=== PATIENT | male | born 1960 | race Caucasian/White ===

== ENCOUNTER 2022-10-08 15:46 | Emergency (ER) | payer BC, SELFPAY ==
[2022-10-08] VITALS (8 sets, daily range): BP systolic 126–140; BP diastolic 81–92; PULSE 94–101; RESP 16–26; TEMP 37.4; O2SAT 95–98
--- NOTE | 2022-10-08 15:45 | RT.EKG_ITS ---
APPROVED REPORT Exam: Resting ECG Reason for Exam: syncope Patient Location: E HR:97 bpm ECG Measurements Heart Rate 97 AXIS IL 171 P 61 QRSd 91 QRS 48 QT 323 T 44 QTc 412 Conclusion Sinus rhythm...normal P axis, V-rate 60- 99 sinus rhythm, normal axis, normal intervals, non sichemic
--- NOTE | 2022-10-08 16:06 | DI.RAD_ITS ---
Exam(s) XR PORTABLE CHEST AP EXAM: XR PORTABLE CHEST AP CLINICAL HISTORY: cough, syncope. TECHNIQUE: 2D digital imaging was performed. COMPARISON: No exams were available for comparison FINDINGS: LUNGS: Clear. No pleural abnormality seen. HEART: Normal. MEDIASTINUM: Normal. OTHER FINDINGS: None. IMPRESSION: No acute pulmonary findings. DATA REPOSITORY: RADIATION DOSE DELIVERED: Total DLP
--- NOTE | 2022-10-08 16:09 | ED.GENADUL_ITS ---
Discharge Plan Disposition Patient Disposition: Home Condition: Improving Discharge Details Clinical Impression: Cough, Syncope Primary Care Provider: Tamiko,Local ED Provider: Dany Peoples Home Meds and New Rx's Prescriptions: New benzonatate 100 mg capsule 100 mg PO BID PRN (Reason: cough) Qty: 14 0RF No Action Vitamin C 100 mg Tablet 100 mg PO DAILY cholecalciferol (vitamin D3) [Vitamin D3] 25 mcg (1,000 unit) Tablet 25 mcg PO DAILY amitriptyline 10 mg Tablet 30 mg PO DAILY simvastatin 20 mg Tablet 20 mg PO DAILY losartan 100 mg Tablet 100 mg PO DAILY esomeprazole magnesium [Nexium] 20 mg Capsule,Delayed Release(Dr/Ec) 20 mg PO BID Discharge Instructions Instructions: Syncope (ED), Acute Cough (ED) Additional Instructions: Please follow-up with your primary care physician. Please return to the emergency department for any worsening symptoms. Medical Decision Making 62-year-old male presents after syncopal episode in the setting of coughing fit, afebrile nontoxic no respiratory distress no peripheral edema no chest pain. EKG normal sinus rhythm nonischemic, hemodynamically stable. Likely vasovagal syncope in the setting of coughing lower suspicion for ACS PE stroke intracranial trauma or serious bacterial infection. Will obtain screening labs troponin chest x-ray EKG fluids anti-inflammatory close reassessment of symptoms. Patient does endorse a brief left calf cramp yesterday, denies history of thromboembolic disease, will obtain bedside [id number] left lower extremity ultrasound to assess for DVT. 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 Has maintained his oxygenation in normal range, hemodynamically stable labs unremarkable, EKG nonischemic no arrhythmia, bedside ultrasound negative for left lower extremity DVT. High clinical suspicion for vasovagal event in the setting of coughing, now self resolved. Home care instructions and strict return precautions given. Sign Out No HPI General Date/Time Provider Initiated Documentation: 10/08/22 16:06 . HPI Narrative: 62-year-old male presents after syncopal episode after a coughing fit, nonproductive cough today, syncopized on the couch no trauma, denies chest pain or shortness of breath. Denies history of thromboembolic disease or cardiac disease. Related Data Home Medications Medication Instructions Recorded Confirmed amitriptyline 10 mg tablet 30 mg PO DAILY 10/08/22 10/08/22 ascorbic acid (vitamin C) 100 mg 100 mg PO DAILY 10/08/22 10/08/22 tablet (Vitamin C) benzonatate 100 mg capsule 100 mg PO BID PRN cough #14 caps 10/08/22 cholecalciferol (vitamin D3) 25 25 mcg PO DAILY 10/08/22 10/08/22 mcg (1,000 unit) tablet (Vitamin D3) esomeprazole magnesium 20 mg 20 mg PO BID 10/08/22 10/08/22 capsule,delayed release (Nexium) losartan 100 mg tablet 100 mg PO DAILY 10/08/22 10/08/22 simvastatin 20 mg tablet 20 mg PO DAILY 10/08/22 10/08/22 Previous Rx's Medication Instructions Recorded benzonatate 100 mg capsule 100 mg PO BID PRN cough #14 caps 10/08/22 Allergies Allergy/AdvReac Type Severity Reaction Status Date / Time No Known Allergies Allergy Unverified 10/08/22 15:59 General Stated Complaint: Dizzy/Sync MARICEL: 3 Review of Systems Narrative: Review of Systems Constitutional: negative Eyes: negative ENT: negative Cardiovascular: Syncope Respiratory: Cough Gastrointestinal: negative : negative Musculoskeletal: negative Skin: negative Neurologic: negative Psych: negative PFSH All Active Problems (Updated 10/08/22 @ 17:50 by Dany Peoples MD) Cough (Acute) Syncope (Chronic) Social History Smoking/Tobacco Use Status: Never Smoking risk assessment performed?: Yes Alcohol Intake: current Alcohol Intake frequency: a few times a week Drug use: Never Substance use type: does not use Do you feel safe at home: Yes Do you feel safe in your relationship?: Yes Exam Narrative Exam Narrative: Physical Examination General: alert, awake, cooperative, resting comfortably, no acute distress HEENT: normocephalic, atraumatic; PERRL, EOM intact, conjunctiva normal; no nasal discharge; moist mucous membranes, oral and pharyngeal mucosa normal, tolerating secretions Neck: supple, trachea midline; full ROM Chest: normal to inspection Respiratory: normal respiratory effort, speaking in full sentences, clear to auscultation, no wheezing, rales or rhonchi Cardiac: regular rate, regular rhythm, S1S2 intact, no murmurs rubs or gallops GI: abdomen soft, non-tender, non-distended; no palpable mass or hepatosplenomegaly Skin: no lesions, rashes or trauma appreciated Neuro: AAOx3, normal speech, moving all extremities; cranial nerves II through XII intact 5 and 5 strength upper and lower extremities no truncal ataxia Extremities: No peripheral edema Psych: Appropriate mood and affect Course Vital Signs Vital signs: Vital Signs Temperature 37.4 C 10/08/22 15:48 Pulse 97 H 10/08/22 15:48 Respiratory Rate 18 10/08/22 15:48 Blood Pressure 140/90 10/08/22 15:48 Pulse Oximetry 98 10/08/22 15:48 Temperature 37.4 C 10/08/22 15:48 Temperature Source Oral 10/08/22 15:48 Pulse 97 H 10/08/22 15:48 Respiratory Rate 16 10/08/22 16:01 Respiratory Effort Non-Labored 10/08/22 16:01 Respiratory Depth Normal 10/08/22 16:01 Respiratory Pattern Normal 10/08/22 16:01 Blood Pressure 140/90 10/08/22 15:48 Pulse Oximetry 98 10/08/22 15:48 Oxygen Delivery Method Room Air 10/08/22 15:48 Oxygen Flow Rate 0 10/08/22 15:48 Pain Level 0 10/08/22 15:48 PAWSS Have you Been Recently Intoxicated or Drunk Within the Last 30 days?: Yes Have you Ever Experienced Previous Episodes of Alcohol Withdrawal?: No Have you ever Experienced Withdrawal Seizures?: No Have you ever Experienced Delirium Tremens(DT)s?: No Have you ever undergone Alcohol Rehabilitation Treatment (i.e, inpt ot outpatient treatment programs)?: No Have you ever Experienced Blackouts?: No Have you ever Combined Alcohol with other Downers within the last 90 days?: No Have you ever Combined Alcohol with any other Substance of Abuse during the last 90 days?: No Positive Blood Alcohol level on Presentation? [PCS.BAL]: No Evidence of Increased Autonomic Activity (i.e. HR>120, tremor, sweating, agitation, nausea)?: No Result: 1
[2022-10-08 16:13] LABS: Abs Immature Grans 0.02 10^3/uL (0.0-0.06); Absolute Basophil Count 0.04 10^3/uL (0.0-0.2); Absolute Eosinophil Count 0.12 10^3/uL (0.0-0.7); Absolute Monocyte Count 0.54 10^3/uL (0.1-0.8); Absolute Neutrophil Count 5.29 10^3/uL (1.2-6.7); Basophils % 0.6; Eosinophils % 1.8; HCT 41.1 % (40.0-50.0); HGB 14.5 g/dL (13.5-17.5); Immature Grans % 0.3; Lymphocytes % 7.7; MCHC 35.3 % (32.0-36.0); MCV 97 fL (80-95); MPV 8.4 fL (8.0-11.0); Monocytes % 8.3; Neutrophils % 81.3; Platelet Count 183 10^3/uL (130-400); RBC 4.26 10^6/uL (4.36-5.78); RDW 12.2 % (11.8-14.1); RDW-SD 43.1 fL; WBC 6.51 10^3/uL (4.4-10.8)
--- NOTE | 2022-10-08 16:15 | DI.CT_ITS ---
Exam(s) CT HEAD WO EXAM: CT HEAD WO CLINICAL HISTORY: syncope v seizure. TECHNIQUE: Imaging Protocol: Axial computed tomography images with coronal and sagittal reformatted images were created and reviewed COMPARISON: No exams were available for comparison FINDINGS: The ventricular system is normal in appearance. No evidence of acute intracranial hemorrhage, mass effect, or midline shift. The orbital structures are unremarkable. The temporal bone structures appear intact. Calvarium: Normal. Visualized Paranasal sinuses/Mastoids: Clear. IMPRESSION: Normal cranial CT. RADIATION DOSE DELIVERED: 816.73mGy.cm Total DLP 816.73mGy.cm Total DLP DATA REPOSITORY: All CT scans at this facility are submitted to the National Radiology Data Registry (NRDR) Dose Index Registry (DIR) with the [employer] ([employer]). RADIATION OPTIMIZATION: All CT scans at this facility use at least one of these dose optimization te chniques: automated exposure control; mA and/or kV adjustment per patient size (includes targeted exa ms where dose is matched to clinical indication); or iterative reconstruction.
[2022-10-08] MEDS: Dexamethasone 10 MG/ML VIAL IVP (16:20)
[2022-10-08] MEDS: Acetaminophen 325 MG TAB 650 MG PO (16:21)
[2022-10-08] MEDS: Normal Saline 1,000 ML 1000 ML IV (16:21)
[2022-10-08 16:31] LABS: ALT 74 U/L (16-63); Albumin 3.8 g/dL (3.4-5.0); Alkaline Phosphatase 116 U/L (46-116); Anion Gap 9.1 mmol/L (3-11); BUN 15 mg/dL (7-18); Bilirubin, Total 0.5 mg/dL (0.2-1.0); CO2 25.9 mmol/L (21.0-32.0); CREATININE 1.2 mg/dL (0.70-1.30); Calcium 8.1 mg/dL (8.5-10.1); Chloride 105 mmol/L (98-107); Estimated GFR 69.23 (mL/min/1.73m2); Glucose 100 mg/dL (74-106); Potassium 4.2 mmol/L (3.5-5.1); Sodium 140 mmol/L (136-145); Total Protein 7.2 g/dL (6.4-8.2); Troponin I < 50 ng/L (<or=60)
[2022-10-08 16:46] LABS: AST 59 U/L (15-37)
--- NOTE | 2022-10-08 17:06 | DI.VRAD_ITS ---
PROCEDURE INFORMATION: Exam: CT Head Without Contrast Exam date and time: 10/08/2022 4:47 PM Age: 62 years old Clinical indication: Syncope and collapse; Patient HX: Syncope vs seizure TECHNIQUE: Imaging protocol: Computed tomography of the head without contrast. COMPARISON: No relevant prior studies available. FINDINGS: Brain: There is no evidence for acute intra-axial or extra-axial hemorrhage. There is no intracranial mass or mass effect. The basilar cisterns are patent. There is mild diffuse cerebral volume loss. There is normal joy-white differentiation throughout the brain. There is no CT evidence of acute cortical infarct. There are tiny calcifications of the basal ganglia bilaterally. Cerebral ventricles: No ventriculomegaly. Paranasal sinuses: Visualized sinuses are unremarkable. No fluid levels. Mastoid air cells: Visualized mastoid air cells are well aerated. Bones/joints: Unremarkable. No acute fracture. Soft tissues: Unremarkable. IMPRESSION: No acute intracranial process identified. Dictated and Authenticated by: Juan Dong MD. Ordering:ZHANG Saenz MD
--- NOTE | 2022-10-08 17:09 | DI.VRAD_ITS ---
PROCEDURE INFORMATION: Exam: XR Chest Exam date and time: 10/08/2022 4:36 PM Age: 62 years old Clinical indication: Other: Cough, syncope TECHNIQUE: Imaging protocol: Radiologic exam of the chest. Views: 1 view. COMPARISON: No relevant prior studies available. FINDINGS: Lungs: The lungs are clear. There is no pulmonary vascular congestion. Pleural spaces: There are no pleural effusions present. There is no evidence of pneumothorax. Heart/Mediastinum: The cardiomediastinal silhouette is within normal limits. Bones/joints: Unremarkable. IMPRESSION: No active cardiopulmonary disease identified. Dictated and Authenticated by: Juan Dong MD. Ordering:ZHANG Saenz MD
--- NOTE | 2022-10-10 15:03 | NUR.NOTE ---
Nursing Note: [facility] called asking for confirmation of Dr Walker
== END 2022-10-08 18:09 | disposition home or self-care (01) ==
PROVIDERS: Emergency Provider Emergency Medicine
DX: R55 Syncope and collapse (principal); R05.9 Cough, unspecified
CPT/HCPCS: 80053; 93005; 96361; 96374; 99284; 70450; 71045; 84484; 85025; 93010; 99285; J1100